=== PATIENT | male | born 1945 | race Caucasian/White ===

== ENCOUNTER → 2018-10-29 | Outpatient (CLI) | payer MEDICARE ==
[~2018-10-29] MED LIST: ALBU90OI INH; AMOCLA500 PO; ASPI325 PO; ASPI325B PO; AZIT250 PO; CLOP75 PO; Chantix1 EACH PO; DOCU100 PO; ERYT1OIN LEFTEYE; HYDGUAL120 PO; NICO14TP TOP; Norvasc5 MG PO; PROM25 PO; Prinivil10 MG PO; SIMV40 PO
== END ==
LOC: LAB SHORT 07:25 → PLD 07:25
DX: L57.0 Actinic keratosis (principal)
CPT/HCPCS: 88305

== ENCOUNTER 2018-12-17 10:15 | Day surgery (SDC) | payer MEDICARE ==
[~2018-12-17] VITALS: Ht 180.3 cm; Wt 80.4 kg
--- NOTE | 2018-12-17 15:24 | NUR ---
12/17/18 1523 Joana Castillo LATE ENTRY FOR TODAY DURING PROCEDURE 16ML ELAVIEW USED TO ELEVATE 2 CECAL POLYPS MYLICON FLUSH USED FOR GAS BUBBLES
== END 2018-12-17 14:35 | disposition home or self-care (01) ==
LOC: ORSCSDS 10:15
PROVIDERS: Internal Medicine Gastroenterology
PROC: 0DBL8ZX Excision of Transverse Colon, Via Natural or Artificial Opening Endoscopic, Diagnostic (ICD-10-PCS; principal; 2018-12-17 11:30)
PROC: 0DB98ZX Excision of Duodenum, Via Natural or Artificial Opening Endoscopic, Diagnostic (ICD-10-PCS; principal; 2018-12-17 11:30)
PROC: 0DBP8ZX Excision of Rectum, Via Natural or Artificial Opening Endoscopic, Diagnostic (ICD-10-PCS; principal; 2018-12-17 11:30)
PROC: 0DBH8ZX Excision of Cecum, Via Natural or Artificial Opening Endoscopic, Diagnostic (ICD-10-PCS; principal; 2018-12-17 11:30)
PROC: 0DBK8ZX Excision of Ascending Colon, Via Natural or Artificial Opening Endoscopic, Diagnostic (ICD-10-PCS; principal; 2018-12-17 11:30)
PROC: 0DB68ZX Excision of Stomach, Via Natural or Artificial Opening Endoscopic, Diagnostic (ICD-10-PCS; principal; 2018-12-17 11:30)
DX: R12 Heartburn (principal); K22.10 Ulcer of esophagus without bleeding; K29.80 Duodenitis without bleeding; D12.0 Benign neoplasm of cecum; D12.2 Benign neoplasm of ascending colon; D12.3 Benign neoplasm of transverse colon; K62.1 Rectal polyp; K64.8 Other hemorrhoids; K57.30 Diverticulosis of large intestine without perforation or abscess without bleeding; R19.7 Diarrhea, unspecified; I10 Essential (primary) hypertension; E78.5 Hyperlipidemia, unspecified; F17.210 Nicotine dependence, cigarettes, uncomplicated; I25.10 Atherosclerotic heart disease of native coronary artery without angina pectoris; Z79.01 Long term (current) use of anticoagulants; Z79.82 Long term (current) use of aspirin; Z79.899 Other long term (current) drug therapy
CPT/HCPCS: 88305; 88342; J1980; J7120

== ENCOUNTER 2019-11-18 14:41 | Emergency (ER) | payer MEDICARE ==
[~2019-11-18] VITALS: Ht 180.3 cm; Wt 81.7 kg
[2019-11-18] MEDS ORDERED: ERYT1OIN LEFTEYE (15:29)
== END 2019-11-18 15:45 | disposition home or self-care (01) ==
LOC: ER 14:41
DX: S05.02XA Injury of conjunctiva and corneal abrasion without foreign body, left eye, initial encounter (principal); I10 Essential (primary) hypertension; I25.10 Atherosclerotic heart disease of native coronary artery without angina pectoris; E78.5 Hyperlipidemia, unspecified; F17.200 Nicotine dependence, unspecified, uncomplicated; Z79.899 Other long term (current) drug therapy; Z79.82 Long term (current) use of aspirin; Z79.01 Long term (current) use of anticoagulants; X58.XXXA Exposure to other specified factors, initial encounter
CPT/HCPCS: 99283

== ENCOUNTER 2021-11-08 09:43 | Emergency (ER) | payer MEDICARE ==
[~2021-11-08] VITALS: Ht 172.7 cm; Wt 84.4 kg
[2021-11-08 10:08] LABS: Source, Urine Catheter
[2021-11-08 10:27] LABS: Appearance, Urine Clear (Clear); Bilirubin, Urine Neg (Neg); Blood, Urine Neg (Neg); Color, Urine Yellow (P-Yellow); Glucose Qualitative, Urine Neg (Neg); Ketones, Urine Neg (Neg); Leukocyte Esterase, Urine Neg (Neg); Nitrite, Urine Neg (Neg); Protein, Urine 1+ (Neg); Urobilinogen, Urine NORM (Normal)
[2021-11-08 11:57] LABS: Albumin, Blood 3.3 g/dL (3.4-5.0); Albumin/Globulin Ratio 1.1 (0.8-1.8); Bilirubin, Total 0.7 mg/dL (0.1-1.0); Bun/Creatinine Ratio 11.8 (12.0-20.0); Calcium, Blood 8.7 mg/dL (8.5-10.1); Creatinine, Blood 1.27 mg/dL (0.60-1.20); Potassium, Blood 3.8 mmol/L (3.5-5.5); Total Protein, Blood 6.3 g/dL (6.4-8.2)
[2021-11-08 12:57] LABS: BASOPHILS ABSOLUTE AUTO 0.04 K/mm3 (0.00-0.23); BASOPHILS PERCENT AUTO 1 % (0-2); EOSINOPHILS ABSOLUTE AUTO 0.06 K/mm3 (0.00-0.68); EOSINOPHILS PERCENT AUTO 1 % (0-6); Hematocrit 38.9 % (37.0-53.0); Hemoglobin 13.2 g/dL (13.5-17.5); IMMATURE GRAN ABSOLUTE AUTO 0.02 K/mm3 (0.00-0.10); IMMATURE GRAN PERCENT AUTO 0 % (0-1); LYMPHOCYTES ABSOLUTE AUTO 0.86 K/mm3 (0.84-5.20); LYMPHOCYTES PERCENT AUTO 15 % (21-46); MONOCYTES ABSOLUTE AUTO 0.52 K/mm3 (0.16-1.47); MONOCYTES PERCENT AUTO 9 % (4-13); Mean Corpuscular HGB 33.2 pg (26.0-34.0); Mean Corpuscular HGB Conc 33.9 g/dL (31.5-36.5); Mean Corpuscular Volume 98 fL (80-100); Mean Platelet Volume 9.8 fL (9.1-12.4); NEUTROPHILS ABSOLUTE AUTO 4.43 K/mm3 (1.96-9.15); NEUTROPHILS PERCENT AUTO 75 % (41-73); Platelet Count 190 K/mm3 (150-400); RDW Coefficient Variation 12.8 % (11.7-14.2); Red Blood Cell Count 3.98 M/mm3 (4.30-5.90); White Blood Cell Count 5.93 K/mm3 (4.00-11.30)
[2021-11-08] MEDS ORDERED: BUPR75 PO (15:11)
== END 2021-11-08 16:01 | disposition home or self-care (01) ==
LOC: ER 09:43
PROVIDERS: Emergency Medicine
DX: R33.9 Retention of urine, unspecified (principal); E78.5 Hyperlipidemia, unspecified; I10 Essential (primary) hypertension; Z79.899 Other long term (current) drug therapy; Z88.5 Allergy status to narcotic agent
CPT/HCPCS: 51702; 51798; 80053; 85025

== ENCOUNTER 2022-04-14 08:55 | Emergency (ER) | payer MEDICARE ==
[~2022-04-14] VITALS: Ht 172.7 cm; Wt 81.7 kg
[~2022-04-14 08:55] MED LIST changes: +BUPR75 PO
[2022-04-14] MEDS ORDERED: TAMS.4ER PO (09:02)
[2022-04-14] MEDS ORDERED: AMOCLA875 PO (10:29)
== END 2022-04-14 10:43 | disposition home or self-care (01) ==
LOC: ER 08:55
DX: S61.452A Open bite of left hand, initial encounter (principal); L03.114 Cellulitis of left upper limb; I25.10 Atherosclerotic heart disease of native coronary artery without angina pectoris; F17.210 Nicotine dependence, cigarettes, uncomplicated; I10 Essential (primary) hypertension; E78.5 Hyperlipidemia, unspecified; Z23 Encounter for immunization; Z95.5 Presence of coronary angioplasty implant and graft; Z88.5 Allergy status to narcotic agent; Z79.82 Long term (current) use of aspirin; Z79.02 Long term (current) use of antithrombotics/antiplatelets; Z79.899 Other long term (current) drug therapy; W55.01XA Bitten by cat, initial encounter; Y92.9 Unspecified place or not applicable
CPT/HCPCS: 90471; 90714; 96372; 99283-25; A9270; J1885

== ENCOUNTER → 2023-04-24 | Outpatient (CLI) | payer MEDICARE ==
[~2023-04-24] MED LIST changes: +AMOCLA875 PO; +TAMS.4ER PO
== END | disposition home or self-care (01) ==
LOC: PLD 15:55 → LAB SHORT 15:55
DX: D04.4 Carcinoma in situ of skin of scalp and neck (principal)
CPT/HCPCS: 88305